=== PATIENT | male | born 1990 | race Two or more races ===

== ENCOUNTER 2023-06-08 19:45 | Emergency (ER) | payer OTHER ==
[~2023-06-08] VITALS: Ht 167.6 cm; Wt 71.2 kg
[2023-06-08] MEDS ORDERED: ODEFSEY TABLET1 EACH PO (20:14)
[2023-06-08] MEDS ORDERED: 0.9 % SODIUM CHLORIDE 1,000 ML IV STA (20:48)
[2023-06-08] MEDS ORDERED: METRONIDAZOLE/SODIUM CHLORIDE 500 MG/100 ML PIGGYBACK IV ONE (21:00)
[2023-06-08] MEDS ORDERED: CIPROFLOXACIN IN 5 % DEXTROSE 400 MG/200 ML PIGGYBAG IV ONE (21:00)
[2023-06-08 21:45] LABS: HEMATOCRIT 41.5 % (39.0-48.0); HEMOGLOBIN 14.2 g/dL (13-16.00); MEAN CORPUSCULAR HEMOGLOBIN 33.6 pg (27.00-32.0); MEAN CORPUSCULAR HGB CONC 34.2 g/dl (32.0-36.0); RED BLOOD COUNT 4.24 M/uL (4.00-6.00); RED CELL DISTRIBUTION WIDTH 12.5 % (11.5-14.5)
[2023-06-08 21:56] LABS: CALCIUM 8.4 mg/dL (8.5-10.1); CREATININE SERUM 1.22 mg/dL (0.70-1.30); GFR 68.41; POTASSIUM 4.27 mEq/L (3.5-5.1)
[2023-06-08 22:03] LABS: PH,URINE 6.5 (5.0-8.0); URINE APPEARANCE Clear; URINE BILIRRUBIN Negative (NEGATIVE); URINE BLOOD Trace; URINE COLOR Yellow; URINE GLUCOSE Negative (NEGATIVE); URINE LEUKOCYTE Negative; URINE NITRATE Negative; URINE PROTEIN Negative (NEGATIVE); URINE UROBILINOGEN 0.2 E.U./dl
[2023-06-08 22:07] LABS: URINE BACTERIA 6.2 uL (0.0-1933); URINE RBC 5.8 uL (0.0-20.8)
[2023-06-08 22:11] LABS: URINE EPITHELIAL CELLS 0.4 uL (0.0-38.8); URINE WBC 1.3 uL (0.0-23.2)
[2023-06-08 22:22] LABS: PLATELET COUNT 53 K/uL (150-450)
[2023-06-09] MEDS ORDERED: ACETAMINOPHEN 500 MG GEL..CAP PO PRN (04:15)
[2023-06-09 04:51] LABS: HEMATOCRIT 42.2 % (39.0-48.0); HEMOGLOBIN 14.5 g/dL (13-16.00); MEAN CELL VOLUME 96.3 fL (80.0-100.00); MEAN CORPUSCULAR HEMOGLOBIN 33.2 pg (27.00-32.0); MEAN CORPUSCULAR HGB CONC 34.5 g/dl (32.0-36.0); RED BLOOD COUNT 4.38 M/uL (4.00-6.00); RED CELL DISTRIBUTION WIDTH 13.3 % (11.5-14.5)
[2023-06-09 05:14] LABS: PLATELET COUNT 48 K/uL (150-450)
== END 2023-06-09 10:12 | disposition left against medical advice (07) ==
LOC: ER 19:45
PROVIDERS: Emergency Medicine; General Practice
DX: K52.89 Other specified noninfective gastroenteritis and colitis (principal); B20 Human immunodeficiency virus [HIV] disease; Z20.822 Contact with and (suspected) exposure to COVID-19